=== PATIENT | male | born 1950 | race Caucasian/White ===

== ENCOUNTER 2021-07-28 12:38 | Outpatient (CLI) | payer MEDICARE, OTHER | END 2021-07-28 23:59 | disposition home or self-care (01) | LOC: CFH 12:38 | PROVIDERS: ATTEND Internal Medicine Cardiovascular Disease | DX: I25.9 Chronic ischemic heart disease, unspecified (principal); I10 Essential (primary) hypertension; I25.720 Atherosclerosis of autologous artery coronary artery bypass graft(s) with unstable angina pectoris | CPT/HCPCS: 78452; 93017; A9502 ==